=== PATIENT | female | born 2000 | race Caucasian/White ===

== ENCOUNTER 2020-02-03 11:01 | Emergency (ER) | payer OTHER, SELFPAY ==
[2020-02-03 11:02] VITALS: BP 126/82; PULSE 108; RESP 17; TEMP 35.8; O2SAT 99; BMI 21.6
[2020-02-03 11:20] VITALS: O2SAT 99
--- NOTE | 2020-02-03 11:21 | ED.DCSUM_ITS ---
History of Present Illness Chief Complaint: Chest Pain Informant: Patient Onset: Days - 6 days Context: Gradual Onset Timing: Waxes and wanes Current Severity: Mild Maximum Severity: Moderate Narrative: Patient presents with a 6-day history of left-sided sharp chest pain that wraps around her chest. Patient states she initially thought she slept wrong and had pain on the lateral ribs. She now has sharp pain that radiates forward to her sternum and into her back. Pain does wax and wane but has not completely resolved. She states that she will feel short of breath at times. Patient is 8 weeks . She denies any difficulties with the delivery or extended stay in the hospital. Past Medical History - Allergies and Home Meds Allergies/Adverse Reactions: Allergies No Known Allergies Allergy (Verified 02/03/20 11:01) Primary Care Physician: Vida Burns,Out of [NON-STAFF] - Past Medical History: None Lives: With Family Smoking Status: Never smoker Review of Systems General: Denies: Chills, Fever Eyes: Denies: Visual changes - bilaterally ENT: Denies: Bilateral ear pain Cardiovascular: Reports: Chest pain Respiratory: Reports: Dyspnea. Denies: Cough Gastrointestinal: Denies: Abdominal pain, Vomiting, Diarrhea Genitourinary: Denies: Dysuria Musculoskeletal: Denies: Swelling, Extremity Pain Neurological: Denies: Headache Hematologic: Denies: Easy bruising, Easy bleeding Allergy: Denies: Uticaria Physical Exam Vital Signs/Narrative: Vital Signs Temp Pulse Resp BP Pulse Ox 02/03/20 11:02 96.4 F L 108 H 17 126/82 H 99 Inital Vital Signs reviewed: Yes General: Well nourished, Well developed Head: Normocephalic ENT: Moist mucous membranes Neck: Supple Cardiovascular: Regular rate, Regular rhythm Respiratory: No distress, CTA bilaterally Abdomen: Soft, Nontender Extremities: Nontender, No edema Skin: Normal color Neurological: Alert, Oriented x3 Psychological: Normal affect Diagnostic/Tx/Re-eval Chest X-Ray - ED: 1 View, Read by ED Physician, Normal, Heart, Lungs, Mediastinum Impressions Chest X-Ray 02/03/20 11:40 IMPRESSION: Normal x-ray examination of the chest. Electronically Signed: Alexis Weiss, at 12:02 EST , Service support , 02/03/20 11:40 Chest 1 View (Portable) [RAD] Stat Laboratory Results 02/03/20 02/03/20 02/03/20 11:30 11:30 11:30 WBC 5.6 RBC 4.83 Hgb 15.0 Hct 44.2 MCV 91.5 MCH 31.1 MCHC 33.9 RDW Std Deviation 38.0 RDW Coeff of Main 11.5 L Plt Count 235 MPV 10.9 Immature Gran % (Auto) 0.500 Neut % (Auto) 55.8 Lymph % (Auto) 31.2 Grainger % (Auto) 8.3 Eos % (Auto) 3.7 Baso % (Auto) 0.5 Absolute Neuts (auto) 3.1 Absolute Lymphs (auto) 1.76 Nucleated RBC % 0 D-Dimer Quant (PE/DVT) 0.43 Sodium 140 Potassium 3.8 Chloride 105 Carbon Dioxide 29.0 Anion Gap 6 BUN 9 Creatinine 0.76 Estim Creat Clear Calc 109.62 Est GFR (MDRD) Af Amer 123 Est GFR (MDRD) Non-Af 102 BUN/Creatinine Ratio 11.8 Glucose 74 Calcium 9.2 Troponin I < 0.015 - EKG Initial EKG Interpretation: Sinus Rhythm - Sinus at 67 with no acute ischemia. - Medical Decision Making Patient was given aspirin on arrival. On repeat evaluation patient is resting comfortably. Test results are discussed with her. Chest x-ray per my review reveals normal lungs and mediastinum. Lab work is unremarkable including a negative D-dimer. EKG is unremarkable. I did discuss with the patient I do believe this is musculoskeletal. She will continue ibuprofen and will be given Lidoderm patches. She is breast-feeding we will avoid any narcotic or potentially sedating medications secondary to this. She voices understanding and agreement. ED Disposition - Plan for ED Patient: Disposition: Home or Assisted Living Diagnosis: Chest wall pain Instructions: ED Strain Chest Wall Prescriptions: Lidocaine [Lidoderm Patch] 1 patch TOPICAL DAILY #4 patch Transmission Status: Pending to [id number] Referrals: [facility] Doctor,Out of [NON-STAFF] - 1 Week if not improving
[2020-02-03] MEDS: Aspirin 81 MG TAB.CHEW 324 MG PO (11:25)
--- NOTE | 2020-02-03 11:40 | RAD_ITS ---
STUDY: X-RAY CHEST REASON FOR EXAM: Female, 19 years old. STERNAL CHEST PAIN THAT RADIATES AROUND TO LEFT SHOULDER/BACK. PT REPORTS SYMPTOMS STARTING LAST SATURDAY, HAS IMPROVEMENT WITH IBUPROFEN. PT 8 WEEKS POST TECHNIQUE: Single AP portable view of the chest. COMPARISON: None. FINDINGS: EKG electrodes are seen. The lungs are clear and expanded. There is no demonstrated pleural abnormality. Normal size heart. Normal mediastinum and paul. Normal visualized pulmonary arteries. Normal visualized aortic arch and descending thoracic aorta. Normal visualized thoracic spine. Normal visualized ribs, clavicles, and shoulders. There is no demonstrated abnormality of the visualized soft tissue structures of the upper abdomen. RAD/Chest 1 View (Portable) IMPRESSION: Normal x-ray examination of the chest. Electronically Signed: Alexis Weiss, at 12:02 EST , Service support ,
[2020-02-03 11:54] LABS: Absolute Lymphocyte Count 1.76 X10^3/uL (0.83-4.51); Absolute Neutrophil Count 3.1 X10^3/uL (2.0-7.7); Basophil# 0.03 X10^3/uL; Basophil% 0.5 % (0-1); Eosinophil# 0.21 X10^3/uL; Eosinophils% 3.7 % (0-5); Hematocrit 44.2 % (37-47); Lymphocyte # 1.76 X10^3/ul (4.0); Lymphocyte % 31.2 % (19-41); Mean Corp Hgb Conc 33.9 g/dL (32-36); Mean Corpuscular Hgb 31.1 pg (27.0-32.0); Mean Corpuscular Volume 91.5 fL (81-99); Mean Platelet Vol. 10.9 fl (6.2-12.0); Monocyte# 0.47 X10^3/uL; Monocyte% 8.3 % (0-10); NRBC Flagged by Analyzer 0 % (0-5); Neutrophil # 3.14 X10^3/uL (2.7-7.7); Neutrophil % 55.8 % (47-70); Platelet Count 235 K/mm3 (150-450); RBC Distribution Width CV 11.5 % (11.6-14.6); Red Blood Count 4.83 M/mm3 (4.2-5.4); White Blood Count 5.6 K/mm3 (4.4-11.0)
[2020-02-03 12:02] LABS: D-Dimer Quantitative (DVT/PE) 0.43 FEU/ug/m (0.27-0.49)
[2020-02-03 12:05] LABS: Anion Gap 6 (5-15); BUN 9 mg/dL (7-18); BUN/Creat Ratio 11.8 RATIO (10-20); Calcium,Total 9.2 mg/dL (8.5-10.1); Chloride 105 mmol/L (98-107); Creatinine, Serum 0.76 mg/dL (0.55-1.02); EST Glomerular Filtration Rate 102 mL/min (>60); Est Glom Filt Rate - Afr Amer 123 mL/min (>60); Estimated Creatinine Clearance 109.62 ml/min; Glucose 74 mg/dL (74-106); Potassium 3.8 mmol/L (3.5-5.1); Sodium Level 140 mmol/L (136-145)
[2020-02-03] MEDS: Lidocaine 5% Patch 1 PATCH TOPICAL (12:36)
[2020-02-03 12:40] VITALS: BP 128/82; PULSE 92; RESP 17; O2SAT 99
== END 2020-02-03 12:41 | disposition home or self-care (01) ==
PROVIDERS: Emergency Provider Emergency Medicine
DX: R07.89 Other chest pain (principal)
CPT/HCPCS: 71045; 80048; 84484; 85025; 85379; 93005; 99285